=== PATIENT | male | born 1950 ===

== ENCOUNTER 2022-10-31 14:19 | Emergency (ER) | payer MEDICARE ==
[2022-10-31] MEDS ORDERED: Lidocaine 1% 5 ML VIAL INJECT ONE (14:50)
[2022-10-31] MEDS ORDERED: Diphtheria,Pertussis(Acell),Tetanus Vaccine 0.5 ML Syringe IM ONE (14:51)
== END 2022-10-31 14:35 | disposition home or self-care (01) ==
LOC: LB.ED 14:19
DX: S61.032A Puncture wound without foreign body of left thumb without damage to nail, initial encounter (principal); W26.9XXA Contact with unspecified sharp object(s), initial encounter
CPT/HCPCS: 10120; 90471; 90715; 99282-25; 99283